=== PATIENT | female | born 2000 | race Caucasian/White ===

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

== ENCOUNTER 2020-05-13 19:11 | Emergency (ER) | payer BC ==
[2020-05-13 20:48] VITALS: BP 121/73; PULSE 88
--- NOTE | 2020-05-13 21:38 | EDM.PDOC ---
ED HPI GENERAL MEDICAL PROBLEM - General Chief Complaint: Lower Extremity Injury/Pain Stated Complaint: RT FOOT PAIN Time Seen by Provider: 05/13/20 20:46 Source of Information: Reports: Patient History Limitations: Reports: No Limitations - History of Present Illness INITIAL COMMENTS - FREE TEXT/NARRATIVE: HISTORY AND PHYSICAL: History of present illness: Patient is a 20-year-old female who presents to the ED today with concern of right foot pain and injury that occurred on Thursday, approximately 4 days ago. Patient states that she was walking and she stepped funny and her leg gave out. Patient states that she ended up bending her toes in a "funny way "and since then has had pain of the base of her toes. Patient states that she has been able to walk on her foot but does have some pain with doing so. Patient denies completely falling and hitting her head or losing consciousness. Patient denies any other symptoms or concerns. Patient denies fever, chills, chest pain, shortness of breath, or cough. Denies headache, neck stiff ness, change in vision, syncope, or near syncope. Denies nausea, vomiting, abdominal pain, diarrhea, constipation, or dysuria. Has not noted any blood in urine or stool. Patient has been eating and drinking appropriately. Review of systems: As per history of present illness and below otherwise all systems reviewed and negative. Past medical history: As per history of present illness and as reviewed below otherwise noncontributory. Surgical history: As per history of present illness and as reviewed below otherwise noncont ributory. Social history: See social history for further information Family history: As per history of present illness and as reviewed below otherwise noncontributory. Physical exam: General: Patient is alert, oriented, and in no acute distress. Patient sitting comfortably on exam table. HEENT: Atraumatic, normocephalic, pupils equal and reactive bilaterally, negative for conjunctival pallor or scleral icterus, mucous membranes moist, TMs normal bilaterally, throat clear, neck supple, nontender, trachea midline. No drooling or trismus noted. No meningeal signs. No hot potato voice noted. Lungs: Clear to auscultation, breath sounds equal bilaterally, chest nontender. Heart: S1S2, regular rate and rhythm without overt murmur Abdomen: Soft, nondistended, nontender. Negative for masses or hepatosplenomegaly. Negative for costovertebral tenderness. Pelvis: Stable nontender. Genitourinary: Deferred. Rectal: Deferred. Skin: Intact, warm, dry. No lesions or rashes noted. Extremities: Patient has full range of motion of the complete right lower extremity without pain or difficulty. No obvious deformity of the complete right lower extremity. Patient does have mild pain with palpation of the base of the first toe of the right foot. No erythema, bruising, or deformity noted. Dorsalis pedis and posterior tibial pulses are grossly intact of the right lower extremity with capillary refill less than 2 seconds. Otherwise, atraumatic, negative for cords or calf pain. Neurovascular unremarkable. Neuro: Awake, alert, oriented. Cranial nerves II through XII unremarkable. Cerebellum unremarkable. Motor and sensory unremarkable throughout. Exam nonfocal. Notes: Discussed importance for follow-up with primary care provider or podiatry. Voices understanding and is agreeable to plan of care. Denies any further questions or concerns at this time. Diagnostics: Foot x-ray Therapeutics: None Prescription: None Impression: Right foot injury Plan: 1. Rest, ice, elevate the affected extremity. You can apply ice 15 minutes on, 15 minutes off. 2. Tylenol and/or Ibuprofen as directed for pain management or discomfort. 3. Follow up with the primary care provider or podiatry as discussed. Return to the ED as needed and as discussed. Definitive disposition and diagnosis as appropriate pending reevaluation and review of above. Right Foot Pain Score (Numeric/FACES): 4 - Related Data Allergies Allergy/AdvReac Type Severity Reaction Status Date / Time No Known Allergies Allergy Verified 05/13/20 20:51 Home Meds: Home Meds Levothyroxine 75 mcg PO DAILY 06/11/18 [History] Past Medical History - Past Health History Medical/Surgical History: Denies Medical/Surgical History HEENT History: Reports: Impaired Vision Other HEENT History: wears glasses Psychiatric History: Reports: None Endocrine/Metabolic History: Reports: Hypothyroidism Hematologic History: Reports: None - Infectious Disease History Infectious Disease History: Reports: None Social & Family History - Family History Family Medical History: Noncontributory - Tobacco Use Smoking Status *Q: Never Smoker Second Hand Smoke Exposure: No - Caffeine Use Caffeine Use: Reports: Coffee, Soda Caffeine Use Comment: 2-3drinks/day - Recreational Drug Use Recreational Drug Use: No Review of Systems - Review of Systems Review Of Systems: Comprehensive ROS is negative, except as noted in HPI. ED EXAM, GENERAL - Physical Exam Exam: See Below (see dictation) Course - Vital Signs Last Recorded V/S: Last Vital Signs Temp 98.2 F 05/13/20 20:52 Pulse 88 05/13/20 20:52 Resp 14 05/13/20 20:52 BP 121/73 05/13/20 20:52 Pulse Ox 99 05/13/20 20:52 Departure - Departure Time of Disposition: 22:00 Disposition: Home, Self-Care 01 Clinical Impression: Foot injury Qualifiers: Encounter type: initial encounter Laterality: right Qualified Code(s): S99.921A - Unspecified injury of right foot, initial encounter - Discharge Information Referrals: Kiara Hartman, [employer] [Primary Care Provider] - Forms: ED Department Discharge Additional Instructions: The following information is given to patients seen in the emergency department who are being discharged to home. This information is to outline your options for follow-up care. We provide all patients seen in our emergency department with a follow-up referral. The need for follow-up, as well as the timing and circumstances, are variable depending upon the specifics of your emergency department visit. If you don't have a primary care physician on staff, we will provide you with a referral. We always advise you to contact your personal physician following an emergency department visit to inform them of the circumstance of the visit and for follow-up with them and/or the need for any referrals to a consulting specialist. The emergency department will also refer you to a specialist when appropriate. This referral assures that you have the opportunity for follow-up care with a sp ecialist. All of these measure are taken in an effort to provide you with optimal care, which includes your follow-up. Under all circumstances we always encourage you to contact your private physicia n who remains a resource for coordinating your care. When calling for follow-up care, please make the office aware that this follow-up is from your recent emergency room visit. If for any reason you are refused follow-up, please contact the [facility] Emergency Department at and asked to speak to the emergency department charge nurse. [facility] [address] [place] [address] [facility] [address] [place] [id number] [facility], Dr. Quinn, Podiatry [address] [place] [address] 1. Rest, ice, elevate the affected extremity. You can apply ice 15 minutes on, 15 minutes off. 2. Tylenol and/or Ibuprofen as directed for pain management or discomfort. 3. Follow up with the primary care provider or podiatry as discussed. Return to the ED as needed and as discussed. Sepsis Event Note (ED) - Evaluation Sepsis Screening Result: No Definite Risk - Focused Exam Vital Signs: Vital Signs Temp Pulse Resp BP Pulse Ox 05/13/20 20:52 98.2 F 88 14 121/73 99 05/13/20 20:46 98.2 F 88 121/73 99
--- NOTE | 2020-05-13 21:57 | CR ---
Right foot: 2 views of the right foot were obtained. Comparison: No prior foot exam is available. Joint spaces are preserved. No calcaneal spurs are seen. No discrete fracture or other abnormality is appreciated. Impression: 1. No abnormality is identified on 2 view right foot exam. Diagnostic code #1 Study was dictated in MDT
== END 2020-05-13 22:35 | disposition home or self-care (01) ==
LOC: MW.ED 19:11
DX: S99.921A Unspecified injury of right foot, initial encounter (principal); E03.9 Hypothyroidism, unspecified; Z79.899 Other long term (current) drug therapy; X58.XXXA Exposure to other specified factors, initial encounter
CPT/HCPCS: 73620-26-RT; 73620-RT; 99282; 99283

== ENCOUNTER 2021-08-07 15:46 | Emergency (ER) | payer BC ==
--- NOTE | 2021-08-07 16:23 | EDM.PDOC ---
ED HPI GENERAL MEDICAL PROBLEM - General Chief Complaint: Upper Extremity Injury/Pain Stated Complaint: HURT RT THUMB Time Seen by Provider: 08/07/21 16:17 - History of Present Illness INITIAL COMMENTS - FREE TEXT/NARRATIVE: Patient presents after slamming her thumb in a car door prior to arrival. No fall with head or neck injury. There is throbbing pain. No numbness or weakness. Patient took pain medication prior to arrival right thumb Pain Score (Numeric/FACES): 7 - Related Data Allergies Allergy/AdvReac Type Severity Reaction Status Date / Time No Known Allergies Allergy Verified 08/07/21 16:06 Home Meds: Home Meds Levothyroxine 100 mcg PO DAILY 06/11/18 [History] Past Medical History - Past Health History Medical/Surgical History: Denies Medical/Surgical History HEENT History: Reports: Impaired Vision Other HEENT History: wears glasses Cardiovascular History: Reports: None Respiratory History: Reports: None Gastrointestinal History: Reports: None Genitourinary History: Reports: None 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 Musculoskeletal History: Reports: None Neurological History: Reports: None Psychiatric History: Reports: None Endocrine/Metabolic History: Reports: Hypothyroidism Hematologic History: Reports: None Immunologic History: Reports: None Oncologic (Cancer) History: Reports: None Dermatologic History: Reports: None - Infectious Disease History Infectious Disease History: Reports: None - Past Surgical History Head Surgeries/Procedures: Reports: None HEENT Surgical History: Reports: None Cardiovascular Surgical History: Reports: None Respiratory Surgical History: Reports: None GI Surgical History: Reports: None Female Surgical History: Reports: None Endocrine Surgical History: Reports: None Neurological Surgical History: Reports: None Musculoskeletal Surgical History: Reports: None Oncologic Surgical History: Reports: None Dermatological Surgical History: Reports: None Social & Family History - Family History Family Medical History: No Pertinent Family History - Caffeine Use Caffeine Use: Reports: None Caffeine Use Comment: 2-3drinks/day - Recreational Drug Use Recreational Drug Use: No Review of Systems - Review of Systems Review Of Systems: See Below Constitutional: Reports: No Symptoms Nose: Reports: Other (No head injury) Musculoskeletal: Reports: Hand Pain Skin: Reports: Bruising Neurological: Reports: No Symptoms ED EXAM, GENERAL - Physical Exam Exam: See Below Free Text/Narrative:: CONSTITUTIONAL: well appearing in no acute distress SKIN: dry, and intact without rash HENT: Normocephalic, atraumatic, NECK: normal range of motion PULMONARY: normal chest rise and fall, no respiratory distress or stridor NEUROLOGIC: normal speech, moves all extremities, grossly non-focal MUSCULOSKELETAL: Rest of the right thumb. There is a subungual hematoma that is present. Patient has a thick nail adhesive that is red and so I cannot see the the nail bed that has subungual hematoma PSYCHIATRIC: normal mood and affect Course - Vital Signs Text/Narrative:: Differential diagnosis: Contusion to the thumb, subungual hematoma, extensor tendon avulsion, fracture, dislocation, other She presents as outlined above. X-rays negative for fracture. There is a subungual hematoma but the patient decides against trephination at this point. I cannot say that the thumb does not extend properly and there could be a partial tendon avulsion so the digit was splinted in extension. This will be maintained for 6 to 8 weeks if there is concern for partial tendon disruption with PCP follow-up. Ortho as needed if splint necessitates this for prolonged immobilization. Last Recorded V/S: Last Vital Signs Temp 36.6 C 08/07/21 16:06 Pulse 87 08/07/21 17:18 Resp 18 08/07/21 17:18 BP 138/72 08/07/21 17:18 Pulse Ox 98 08/07/21 17:18 Departure - Departure Time of Disposition: 17:37 Disposition: Admitted As Inpatient 66 Condition: Good Clinical Impression: Contusion, thumb - Discharge Information Instructions: Contusion Referrals: Kiara Hartman IS ANALYST [Primary Care Provider] - Forms: ED Department Discharge Additional Instructions: There is no obvious fracture on the x-ray. You may have x-ray repeated in 1 week if pain persist to exclude a hidden (occult) fracture. In addition please maintain the splint with the thumb in extension if there is any concern for function of extending the thumb as if you do not maintain the splint for 6 to 8 weeks she can end up with an abnormal positioned thumb. Finally there is some degree of blood that is underneath the nail. If you need to have a small hole put in the nail to help drain the blood please return to the emergency department. Otherwise as discussed you may use Tylenol and ibuprofen together or separately The following information is given to patients seen in the emergency department who are being discharged to home. This information is to outline your options for follow-up care. We provide all patients seen in our emergency department with a follow-up referral. The need for follow-up, as well as the timing and circumstances, are variable depending upon the specifics of your emergency department visit. If you don't have a primary care physician on staff, we will provide you with a referral. We always advise you to contact your personal physician following an emergency department visit to inform them of the circumstance of the visit and for follow-up with them and/or the need for any referrals to a consulting specialist. The emergency department will also refer you to a specialist when appropriate. This referral assures that you have the opportunity for follow-up care with a specialist. All of these measure are taken in an effort to provide you with optimal care, which includes your follow-up. Primary care clinics in the area: [facility] [address] [place] [address] [facility] [address] [place] [address] Under all circumstances we always encourage you to contact your private physician who remains a resource for coordinating your care. When calling for follow-up care, please make the office aware that this follow-up is from your recent emergency room visit. If for any reason you are refused follow-up, please contact the Emergency Department at and asked to speak to the emergency department charge nurse. Sepsis Event Note (ED) - Evaluation Sepsis Screening Result: No Definite Risk - Focused Exam Vital Signs: Vital Signs Temp Pulse Resp BP Pulse Ox 08/07/21 17:18 87 18 138/72 98 08/07/21 16:06 36.6 C 93 18 140/77 99
--- NOTE | 2021-08-07 17:18 | CR ---
3 VIEWS right hand 1st digit thumb INDICATION: Injury. IMPRESSION: No visualized fracture. Alignments anatomic. Joint spaces unremarkable. Dictated by Evelio Francisco MD @ 08/07/2021 5:17:49 PM (Electronically Signed)
[2021-08-07 17:20] VITALS: BP 138/72; PULSE 87
== END 2021-08-07 17:55 | disposition critical access hospital (66) ==
LOC: MW.ED 15:46
DX: S60.011A Contusion of right thumb without damage to nail, initial encounter (principal); E03.9 Hypothyroidism, unspecified; Z79.899 Other long term (current) drug therapy; W23.0XXA Caught, crushed, jammed, or pinched between moving objects, initial encounter
CPT/HCPCS: 73140-26-F5; 73140-F5; 99283-25

== ENCOUNTER 2024-12-10 10:38 | Emergency (ER) | payer BC, OTHER ==
[2024-12-10 11:22] LABS: BASOPHILS ABSOLUTE AUTO 0.06 K/uL (0.00-0.20); BASOPHILS PERCENT AUTO 0.5 % (0.0-1.0); EOSINOPHILS ABSOLUTE AUTO 0.21 K/uL (0.00-0.45); EOSINOPHILS PERCENT AUTO 1.9 % (0.0-6.0); HEMATOCRIT 41.7 % (37.0-47.0); HEMOGLOBIN 13.7 g/dL (12.0-16.0); IMMATURE GRAN ABSOLUTE AUTO 0.04 K/uL (0.00-0.05); IMMATURE GRAN PERCENT AUTO 0.4 % (0.0-0.4); LYMPHOCYTES ABSOLUTE AUTO 1.47 K/uL (1.00-4.80); LYMPHOCYTES PERCENT AUTO 13.1 % (24.0-44.0); MEAN CORPUSCULAR HGB CONC 32.9 g/dL (32.0-36.0); MEAN CORPUSCULAR VOLUME 82.1 fL (83.0-99.0); MEAN PLATELET VOLUME 9.8 fL (9.4-12.3); MONOCYTES ABSOLUTE AUTO 0.67 K/uL (0.00-0.80); NEUTROPHILS ABSOLUTE AUTO 8.81 K/uL (1.80-7.70); NEUTROPHILS PERCENT AUTO 78.1 % (41.0-71.0); PLATELET COUNT,PLT 342 K/uL (150-400); RED BLOOD CELL COUNT 5.08 M/uL (4.10-5.30); WHITE BLOOD CELL COUNT,WBC 11.26 K/uL (3.9-11.3)
[2024-12-10] MEDS: Sodium Chloride 0.9% 1,000 ML IV ONE (11:26)
[2024-12-10] MEDS: Ketorolac 30 MG/ML SDV IVPUSH ONE (11:27)
[2024-12-10] MEDS: Ondansetron 4 MG/2 ML SDV IVPUSH ONE (11:27)
[2024-12-10 11:44] LABS: A/G RATIO 1.2 (0.9-1.6); ALBUMIN 4.4 g/dL (3.4-5.0); BILIRUBIN TOTAL 0.5 mg/dL (0.2-1.0); CARBON DIOXIDE,CO2 26.7 mmol/L (21.0-32.0); CREATININE 0.9 mg/dL (0.6-1.0); EST CRCL DRUG DOSING (CG) 82.13 mL/min; POTASSIUM,K 4.1 mmol/L (3.5-5.1); PROTEIN TOTAL,TP 8.2 g/dL (6.4-8.2)
[2024-12-10] MEDS ORDERED: Ondansetron 4 MG Tab.DIS PO ONE (12:53)
[2024-12-10 13:03] LABS: COLOR,URINE RED; GLUCOSE,URINE NEGATIVE (NEGATIVE); KETONES,URINE 15 mg/dL (NEGATIVE); LEUKOCYTE ESTERASE,URINE TRACE (NEGATIVE); NITRITE,URINE NEGATIVE (NEGATIVE); OCCULT BLOOD,URINE LARGE (NEGATIVE); PROTEIN,URINE 100 mg/dL (NEGATIVE)
[2024-12-10 13:08] LABS: APPEARANCE,URINE BLOODY; BILIRUBIN,URINE SMALL (NEGATIVE)
[2024-12-10 13:09] LABS: BACTERIA,URINE FEW (NEGATIVE); MUCUS,URINE LIGHT (NONE-MOD); RBC,URINE TOO NUMEROUS TO CT (0-2/HPF); SQUAMOUS EPITHELIAL CELLS,UR FEW
[2024-12-10 13:38] VITALS: BP 105/53; PULSE 88
== END 2024-12-10 13:36 | disposition home or self-care (01) ==
LOC: MW.ED 10:38
DX: N83.202 Unspecified ovarian cyst, left side (principal); N39.0 Urinary tract infection, site not specified; E03.9 Hypothyroidism, unspecified; Z75.3 Unavailability and inaccessibility of health-care facilities; Z79.890 Hormone replacement therapy; Z79.899 Other long term (current) drug therapy
CPT/HCPCS: 36415; 76830; 80053; 81001; 81025; 84443; 85025; 87086; 96361; 96374; 96375; 99285; J1885; J2405; J7030; 99283